=== PATIENT | female | born 1965 | race Caucasian/White ===

== ENCOUNTER → 2017-04-16 | Outpatient (CLI) | payer BC ==
[~2017-04-16] MED LIST: CLR10 PO; GLUC15002 PO; MONT1TAB5 PO
== END | disposition home or self-care (01) ==
LOC: C.PAPS 11:34
PROVIDERS: ATTEND Obstetrics & Gynecology
DX: Z01.419 Encounter for gynecological examination (general) (routine) without abnormal findings (principal)

== ENCOUNTER → 2017-09-04 | Outpatient (CLI) | payer BC ==
[2017-09-04 10:05] LABS: BASO % 0.6 %; BASO ABS # 0.04 K/uL (0-0.2); COMPLETE YES; EOS % 2.7 %; HEMATOCRIT 43.8 % (37-47); IG% 0.2 %; LYMPH % 28.4 %; LYMPH ABS # 1.81 K/uL (1.2-3.4); MEAN CELL VOLUME 87.4 fL (80-100); MEAN CORPUSCULAR HEMOGLOBIN 30.5 pg (25-34); MEAN CORPUSCULAR HGB CONC 34.9 g/dl (32-36); MEAN PLATELET VOLUME 8.9 fL (7.4-10.4); MONO % 6.1 %; PLATELET COUNT 240 K/uL (130-400); RED BLOOD COUNT 5.01 M/uL (4.2-5.4); WHITE BLOOD COUNT 6.38 K/uL (4.8-10.8)
[2017-09-04 10:29] LABS: ALT/SGPT 55 U/L (12-78); BLOOD UREA NITROGEN 16 mg/dl (7-18); BUN/CREATININE RATIO 24.1 (10-20); CALCIUM 9.3 mg/dl (8.5-10.1); CARBON DIOXIDE 26 mmol/L (21-32); CHLORIDE 104 mmol/L (98-107); CREATININE 0.68 mg/dl (0.60-1.20); GLUCOSE 81 mg/dl (70-99); POTASSIUM 3.6 mmol/L (3.5-5.1); SODIUM 138 mmol/L (136-145)
[2017-09-04 10:40] LABS: ALKALINE PHOSPHATASE 90 U/L (45-117); AST/SGOT 42 U/L (15-37)
== END | disposition home or self-care (01) ==
LOC: C.LAB1850 09:21
PROVIDERS: ATTEND Internal Medicine Pulmonary Disease
DX: J45.909 Unspecified asthma, uncomplicated (principal); H10.30 Unspecified acute conjunctivitis, unspecified eye; J01.90 Acute sinusitis, unspecified

== ENCOUNTER → 2018-04-20 | Outpatient (CLI) | payer BC ==
[~2018-04-20] MED LIST changes: +CETI10TA84 PO; -CLR10 PO; -GLUC15002 PO; +MXZC25 PO
== END | disposition home or self-care (01) ==
LOC: C.PAPS 16:19
PROVIDERS: ATTEND Obstetrics & Gynecology
DX: Z01.419 Encounter for gynecological examination (general) (routine) without abnormal findings (principal)

== ENCOUNTER → 2018-04-22 | Outpatient (CLI) | payer BC ==
--- NOTE | 2018-04-22 13:52 | MAMMOGRAPHY REPORT ---
BILATERAL DIGITAL SCREENING MAMMOGRAM TOMOSYNTHESIS WITH CAD: 04/22/2018 CLINICAL HISTORY: Routine screening. TECHNIQUE: The study was acquired using full field digital technology and interpreted from soft copy. Breast tomosynthesis in addition to standard 2D mammography was performed. Current study was also ev aluated with a Computer Aided Detection (CAD) system. COMPARISON: Comparison is made to exams dated: 04/30/2016 mammogram, 05/02/2014 mammogram, 04/13/2012 ma mmogram, 03/20/2010 mammogram - [facility], and 03/01/2008. BREAST COMPOSITION: The tissue of both breasts is almost entirely fatty. FINDINGS: There are possible small clusters of calcifications within the right upper outer quadrant, for which spot magnification views are recommended for further evaluation. The remainder of both breasts are stable compared to prior exams, without suspicious masses, calcific ations, or areas of architectural distortion noted. IMPRESSION: ACR BI-RADS CATEGORY 0: INCOMPLETE EVALUATION: NEED ADDITIONAL IMAGING EVALUATION Right breast calcifications, for which additional imaging evaluation is recommended. The patient tamica l be called to schedule an appointment. Some breast cancers are not detected with mammography. A negative mammographic report should not sachin y biopsy if a clinically suggestive mass is present. Janae Dejesus M.D. ah/:04/22/2018 08:41:24 Surg Tech: RT Chaim(Federica)(M), [facility] letter sent: Addl Imaging 0 BI-RADS Code: ACR BI-RADS Category 0: Incomplete Evaluation: Need Additional Imaging Evaluation
== END | disposition home or self-care (01) ==
LOC: C.MAMM 08:00
PROVIDERS: ATTEND Obstetrics & Gynecology
DX: Z12.31 Encounter for screening mammogram for malignant neoplasm of breast (principal); R92.1 Mammographic calcification found on diagnostic imaging of breast

== ENCOUNTER → 2018-04-29 | Outpatient (CLI) | payer BC ==
--- NOTE | 2018-04-29 13:39 | MAMMOGRAPHY REPORT ---
UNILATERAL RIGHT DIGITAL DIAGNOSTIC MAMMOGRAM: 04/29/2018 CLINICAL HISTORY: Callback from screening mammogram for right breast calcifications. TECHNIQUE: Spot magnification right cc and ML views were obtained. COMPARISON: Comparison is made to exams dated: 04/22/2018 mammogram, 04/30/2016 mammogram, 05/02/2014 m ammogram, 03/20/2010 mammogram, and 04/13/2012 mammogram - [facility]. BREAST COMPOSITION: The tissue of right breast is almost entirely fatty. FINDINGS: Spot magnification views of the right breast demonstrate a 2 mm cluster of punctate and round calcifi cations within the right upper outer quadrant. The calcifications appear slightly increased in numbe r compared to prior exams. Another small 2 mm cluster of similar-appearing calcifications is seen wi thin the right upper outer quadrant more posteriorly, and another small 1 mm cluster of punctate stanton lar appearing calcifications is seen more medially on the cc view; the calcifications were not clearl y present on prior exams. Although the calcifications are round/punctate and therefore more benign i n morphology, given the interval increase compared to prior exams, recommend stereotactic biopsy of 1 of the clusters of calcifications for further evaluation (would recommend sampling of the dominant c luster in the right upper outer quadrant denoted by shinnecock #2). IMPRESSION: ACR BI-RADS CATEGORY 4: SUSPICIOUS Three small 1-2 mm clusters of punctate calcifications in the right upper outer quadrant. Recommend stereotactic biopsy of 1 of the clusters of calcifications for further evaluation. Pending benign pa thology results, recommend follow-up diagnostic mammograms of the right breast in 6 months to confirm stability of the other clusters. A phone call was made to the physician's office to confirm faxed results were received. The patient has been verbally notified of the results. She tentatively scheduled the biopsy before l eaving the department. Some breast cancers are not detected with mammography. A negative mammographic report should not sachin y biopsy if a clinically suggestive mass is present. Janae Dejesus M.D. /:04/29/2018 12:04:41 Senior [employer] Adf Developer: RT Christianne(R)(M), [facility] letter sent: Abnormal 4/5 BI-RADS Code: ACR BI-RADS Category 4: Suspicious
== END | disposition home or self-care (01) ==
LOC: C.MAMM 11:11
PROVIDERS: ATTEND Obstetrics & Gynecology
DX: R92.1 Mammographic calcification found on diagnostic imaging of breast (principal)